=== PATIENT | female | born 1975 | race Caucasian/White ===

== ENCOUNTER → 2017-03-06 | Outpatient (CLI) | payer BC | LOC: MAMMO 09:56 | DX: Z12.31 Encounter for screening mammogram for malignant neoplasm of breast (principal) | CPT/HCPCS: G0202 ==

== ENCOUNTER → 2018-03-20 | Outpatient (CLI) | payer BC | LOC: MAMMO 09:15 | DX: Z12.31 Encounter for screening mammogram for malignant neoplasm of breast (principal) ==

== ENCOUNTER → 2018-03-24 | Outpatient (CLI) | payer BC | LOC: MAMMO 06:58 | DX: N60.02 Solitary cyst of left breast (principal) ==

== ENCOUNTER → 2019-06-02 | Outpatient (CLI) | payer BC | LOC: MAMMO 08:00 | DX: Z12.31 Encounter for screening mammogram for malignant neoplasm of breast (principal) ==

== ENCOUNTER → 2019-10-01 | Outpatient (CLI) | payer BC ==
[2019-10-01 09:35] LABS: BASO # 0.1 (0.02-0.10); EOS # 0.3 (0.04-0.40); EOS % 3.8 % (1.0-5.0); HEMATOCRIT 44.9 % (37.0-47.0); HEMOGLOBIN 14.8 g/dL (12.5-16.0); LYMPH# 2.2 (1.50-4.00); MEAN CELL VOLUME 97 fl (78-100); MEAN CORPUSCULAR HEMOGLOBIN 32 pg (27-31); MEAN CORPUSCULAR HGB CONC 33 g/dL (33-37); MEAN PLATELET VOLUME 10.6 fl (7.4-10.4); MONO # 0.4 (0.20-0.80); NEU # 4.7 (1.40-6.50); PLATELET COUNT 222 K/mm3 (130-400); RED BLOOD COUNT 4.62 M/mm3 (4.10-5.30); RED CELL DISTRIBUTION WIDTH 12.1 % (11.5-14.5); WHITE BLOOD COUNT 7.7 K/mm3 (4.8-10.8)
[2019-10-01 09:53] LABS: ALBUMIN 4.6 g/dL (3.5-5.0); POTASSIUM 4.3 mmol/L (3.5-5.1)
[2019-10-01 09:54] LABS: CALCIUM 9.5 mg/dL (8.3-10.5)
[2019-10-01 09:57] LABS: TOTAL BILIRUBIN 0.4 mg/dL (0.2-1.2)
[2019-10-01 22:37] LABS: T3 TOTAL 111 ng/dL (87-178)
== END ==
LOC: LAB 08:57
PROVIDERS: Physician Assistant
DX: Z01.818 Encounter for other preprocedural examination (principal); G47.411 Narcolepsy with cataplexy; E03.9 Hypothyroidism, unspecified; E78.5 Hyperlipidemia, unspecified; K90.9 Intestinal malabsorption, unspecified; M54.9 Dorsalgia, unspecified; R68.89 Other general symptoms and signs

== ENCOUNTER → 2020-08-11 | Outpatient (CLI) | payer BC ==
[2020-08-11 08:32] LABS: BASO # 0.05 (0.02-0.10); EOS # 0.15 (0.04-0.40); EOS % 1.7 % (1.0-5.0); HEMATOCRIT 42.6 % (37.0-47.0); HEMOGLOBIN 14.3 g/dL (12.5-16.0); LYMPH# 1.43 (1.50-4.00); MEAN CELL VOLUME 94 fl (78-100); MEAN CORPUSCULAR HEMOGLOBIN 32 pg (27-31); MEAN CORPUSCULAR HGB CONC 34 g/dL (33-37); MEAN PLATELET VOLUME 9.8 fl (7.4-10.4); MONO # 0.41 (0.20-0.80); NEU # 6.55 (1.40-6.50); PLATELET COUNT 220 K/mm3 (130-400); RED BLOOD COUNT 4.53 M/mm3 (4.10-5.30); RED CELL DISTRIBUTION WIDTH 11.7 % (11.5-14.5); WHITE BLOOD COUNT 8.6 K/mm3 (4.8-10.8)
== END ==
LOC: LAB 08:11
PROVIDERS: Nurse Practitioner
DX: R53.83 Other fatigue (principal); R07.0 Pain in throat

== ENCOUNTER → 2020-08-17 | Outpatient (CLI) | payer BC | LOC: RAD 07:52 | DX: J45.30 Mild persistent asthma, uncomplicated (principal) ==

== ENCOUNTER → 2020-11-01 | Outpatient (CLI) | payer BC | LOC: MAMMO 08:24 | DX: Z12.31 Encounter for screening mammogram for malignant neoplasm of breast (principal) ==

== ENCOUNTER → 2021-04-22 | Outpatient (CLI) | payer BC | LOC: LAB 12:24 | DX: Z20.822 Contact with and (suspected) exposure to COVID-19 (principal) ==

== ENCOUNTER → 2021-05-30 | Outpatient (CLI) | payer BC | LOC: RAD 15:11 | DX: J32.9 Chronic sinusitis, unspecified (principal) ==

== ENCOUNTER → 2021-08-21 | Day surgery (SDC) | payer BC | END | disposition home or self-care (01) | LOC: MSO 07:14 | DX: K92.1 Melena (principal); K63.5 Polyp of colon; Z80.0 Family history of malignant neoplasm of digestive organs; K60.2 Anal fissure, unspecified | CPT/HCPCS: 00811; J2704; J7120 ==

== ENCOUNTER → 2021-12-25 | Outpatient (CLI) | payer BC | LOC: MAMMO 15:29 | DX: Z12.31 Encounter for screening mammogram for malignant neoplasm of breast (principal) ==

== ENCOUNTER 2024-01-12 18:13 | Emergency (ER) | payer BC ==
[~2024-01-12] VITALS: Ht 172.7 cm; Wt 72.7 kg
[2024-01-12] MEDS ORDERED: PROGESTERONE100 MG PO (18:58)
[2024-01-12] MEDS ORDERED: LEVOTHYROXIN0.025 MG PO (18:58)
[2024-01-12] MEDS ORDERED: DULOXETINE20 MG PO (18:58)
[2024-01-12] MEDS ORDERED: SINGULAIR 110 MG/TAB PO (18:59)
[2024-01-12] MEDS ORDERED: KETOROLAC10 MG PO (19:25)
[2024-01-12] MEDS ORDERED: AMOXICILLIN AND1 TA2 PO (19:25)
[2024-01-12] MEDS ORDERED: Ketorolac 30 MG/ML VIAL IM ONE (19:30)
[2024-01-12] MEDS ORDERED: Amoxicillin/Clavulanate K+ 875/125 MG TAB PO ONE (19:30)
[2024-01-12 19:50] VITALS: BP 119/78
== END 2024-01-12 19:50 | disposition home or self-care (01) ==
LOC: ED 18:13
DX: S51.852A Open bite of left forearm, initial encounter (principal); Z23 Encounter for immunization; W54.0XXA Bitten by dog, initial encounter
CPT/HCPCS: 90715; J1885

== ENCOUNTER → 2024-02-27 | Outpatient (CLI) | payer BC ==
[~2024-02-27] MED LIST: AMOXICILLIN AND1 TA2 PO; DULOXETINE20 MG PO; KETOROLAC10 MG PO; LEVOTHYROXIN0.025 MG PO; PROGESTERONE100 MG PO; SINGULAIR 110 MG/TAB PO
== END ==
LOC: MAMMO 08:25
DX: Z12.31 Encounter for screening mammogram for malignant neoplasm of breast (principal)